=== PATIENT | female | born 1950 | race Caucasian/White ===

== ENCOUNTER 2024-06-11 13:20 | Inpatient (IN) | payer MEDICARE, OTHER ==
[~2024-06-11] VITALS: Ht 180.3 cm; Wt 105.1 kg
[2024-06-11 14:10] LABS: BASOPHILS # (AUTO) 0.07 K/uL (0.00-0.20); BASOPHILS % (AUTO) 0.7 % (0.0-5.0); EOSINOPHILS % (AUTO) 0.9 % (0.0-8.0); HEMATOCRIT 38.7 % (36-48); IMMATURE GRANULOCYTE ABSOLUTE 0.03 K/uL (0-1); LYMPHOCYTES % (AUTO) 27.5 % (21.0-51.0); MEAN CORPUSCULAR HEMOGLOBIN 31.1 pg (27.0-33.0); MEAN CORPUSCULAR HGB CONC 32.8 g/dL (32.0-36.0); MEAN CORPUSCULAR VOLUME 94.9 fL (79-99); MONOCYTES % (AUTO) 9.3 % (3.0-13.0); NEUTROPHILS # (AUTO) 6.6 K/uL (1.8-7.7); NEUTROPHILS % (AUTO) 61.3 % (40.0-77.0); PLATELET COUNT (AUTO) 240 K/uL (130-400); RED BLOOD CELL COUNT(AUTO) 4.08 MIL/uL (4.00-5.50); RED CELL DISTRIBUTION WIDTH 14.6 % (11.0-15.5); WHITE BLOOD COUNT (AUTO) 10.7 K/uL (4.8-10.8)
[2024-06-11 14:14] LABS: APPEARANCE,URINE CLEAR (CLEAR); BILIRUBIN,URINE NEGATIVE (NEGATIVE); COLOR,URINE YELLOW (YELLOW); GLUCOSE, URINE (UA) >=1000 mg/dL (NEGATIVE); KETONES,URINE NEGATIVE (NEGATIVE); LEUKOCYTE ESTERASE ,URINE NEGATIVE Leu/uL (NEGATIVE); NITRATE,URINE NEGATIVE (NEGATIVE); PROTEIN,URINE 600 mg/dL (NEGATIVE); UROBILINOGEN,URINE 0.2 mg/dL (0.2-1.0)
[2024-06-11 14:18] LABS: ADD UA MICROSCOPIC YES
[2024-06-11 14:20] LABS: BACTERIA,URINE RARE /HPF (None Seen); MUCUS,URINE RARE LPF (None Seen); SQUAMOUS EPITHELIAL CELL,UR FEW /HPF (0-2)
[2024-06-11 14:25] LABS: CREATININE 2.4 mg/dL (0.5-1.0); POTASSIUM 3.8 mmol/L (3.5-5.1)
[2024-06-11] MEDS ORDERED: GLUCAGON 1MG KIT 1 MG ML IM PRN ×2 (14:30→15:00)
[2024-06-11] MEDS ORDERED: PoTASSium chloRIDE 10MEQ SR 10 MEQ/TAB TAB.SR.24H PO PRN (14:30)
[2024-06-11] MEDS ORDERED: DEXTROSE 50%-WATER 50 ML DISP.SYRIN IV PRN ×2 (14:30→15:00)
[2024-06-11] MEDS ORDERED: PoTASSium chl 10% ELIXIR 20MEQ 20 MEQ/15 ML UDCUP PO PRN ×2 (14:30→15:00)
[2024-06-11] MEDS ORDERED: PoTASSium chloRIDE 10MEQ/100ML 100 ML IV PRN ×2 (14:30→15:00)
[2024-06-11] MEDS ORDERED: MAGNESIUM 2GM PREMIX 50ML 50 ML IV PRN ×2 (14:30→15:00)
[2024-06-11] MEDS ORDERED: PoTASSium chloRIDE 20MEQ ER 20 MEQ ERTAB PO PRN (15:00)
[2024-06-11] MEDS: MEROPENEM 2 GM in 0.9%NACL 100ML 100 ML IV SCH (16:09)
[2024-06-11] MEDS: INSULIN humuLIN R 100 UNIT/ML 3ML SQ SCH (16:11)
[2024-06-11] MEDS ORDERED: MEROPENEM 1 GM in 0.9%NACL 100ML 100 ML IV SCH (17:00)
[2024-06-11] MEDS ORDERED: COMPOUND IV MISC 1 EACH IVSOLN MISC PRN (19:00)
[2024-06-11] MEDS ORDERED: FOLI0.8T53 PO (19:18)
[2024-06-11] MEDS ORDERED: [UNRECOGNIZED DRUG - CODE] PO (19:18)
[2024-06-11] MEDS ORDERED: CHLO25TA3 PO (19:18)
[2024-06-11] MEDS ORDERED: HYDR50TA37 PO (19:18)
[2024-06-11] MEDS ORDERED: SODI650T PO (19:18)
[2024-06-11] MEDS ORDERED: EZET10TA48 PO (19:18)
[2024-06-11] MEDS ORDERED: LEVO200C2 PO (19:18)
[2024-06-11] MEDS ORDERED: MELA3CAP2 PO (19:18)
[2024-06-11] MEDS ORDERED: AMLO-258 PO (19:18)
[2024-06-11] MEDS ORDERED: SERT-438 PO (19:18)
[2024-06-11] MEDS ORDERED: OLME40TA18 PO (19:18)
[2024-06-11 21:25] VITALS: BP 191/87; PULSE 81; RESP 22; TEMP 97.9
[2024-06-11 21:41] VITALS: BP 189/79; PULSE 80
[2024-06-11 22:25] VITALS: BP 178/86; PULSE 68; RESP 21; TEMP 98.1
[2024-06-11 22:26] VITALS: O2SAT 95
[2024-06-11] MEDS: hydrALAZine 20MG/ML VIAL IV ONE (22:31)
[2024-06-12] VITALS (8 sets, daily range): BP systolic 108–181; BP diastolic 69–74; PULSE 78–87; RESP 16–20; TEMP 97.6–98.3; O2SAT 95–96
[2024-06-12] MEDS: MEROPENEM 500 MG/100ML CRCL 10-25 IV SCH (05:29)
[2024-06-12] MEDS: levoTHYROxine 100 MCG TABLET PO SCH (06:51)
[2024-06-12] MEDS: amLODIPine 5 MG TAB PO SCH (08:33)
[2024-06-12] MEDS: LoSARTan 100 MG TABLET PO SCH (08:33)
[2024-06-12] MEDS: SODIUM BICARBONATE 650 MG TAB PO SCH (08:33)
[2024-06-12] MEDS: Vitamin B Complex/Vit C/Folic Acid PO SCH (08:33)
[2024-06-12] MEDS: EZETIMIBE 10 MG TAB PO SCH (08:33)
[2024-06-12] MEDS: hydrALAZine 25MG TABLET PO SCH (08:44)
[2024-06-12] MEDS: ASPIRIN PO SCH (08:51)
[2024-06-12] MEDS: CALCIUM CARBONATE PO SCH (08:51)
[2024-06-12] MEDS ORDERED: FOLIC ACID PO SCH (09:00)
[2024-06-12] MEDS ORDERED: [UNRECOGNIZED DRUG - OTHER] PO SCH (09:00)
[2024-06-12] MEDS ORDERED: NON-FORMULARY MEDICATION 1 EACH (Hydralazine HCl 50 MG) PO SCH (09:00)
[2024-06-12] MEDS ORDERED: VIT B COMPLEX AND C PO SCH (09:00)
[2024-06-12] MEDS ORDERED: NON-FORMULARY MEDICATION 1 EACH (Olmesartan Medoxomil 40 MG) PO SCH (09:00)
[2024-06-12] MEDS ORDERED: NON-FORMULARY MEDICATION 1 EACH (Levothyroxine Sodium (Levothyroxine) 200 MCG) PO SCH (09:00)
[2024-06-12] MEDS ORDERED: NON-FORMULARY MEDICATION 1 EACH (Amlodipine Besylate 10 MG) PO SCH (09:00)
[2024-06-12] MEDS: ketOROlac 15MG/ML VIAL (15MG/ML) ONE (12:22)
[2024-06-12 15:44] LABS: INR 0.95 (0.85-1.15); PROTHROMBIN TIME 10.3 SEC (9.6-11.6)
[2024-06-12] MEDS ORDERED: NON-FORMULARY MEDICATION 1 EACH (Sertraline HCl 25 MG) PO SCH (21:00)
[2024-06-12] MEDS: SERTraline HCL 50 MG TABLET PO SCH (21:17)
[2024-06-13 04:51] VITALS: BP 177/86; PULSE 76; RESP 18; TEMP 98.3
[2024-06-13 05:31] LABS: BASOPHILS # (AUTO) 0.06 K/uL (0.00-0.20); BASOPHILS % (AUTO) 0.7 % (0.0-5.0); EOSINOPHILS # (AUTO) 0.09 K/uL (0.00-0.70); HEMATOCRIT 35.4 % (36-48); IMMATURE GRANULOCYTE ABSOLUTE 0.06 K/uL (0-1); LYMPHOCYTES # (AUTO) 2.9 K/uL (1.0-4.8); MEAN CORPUSCULAR HEMOGLOBIN 31.3 pg (27.0-33.0); MEAN CORPUSCULAR HGB CONC 33.1 g/dL (32.0-36.0); MEAN CORPUSCULAR VOLUME 94.7 fL (79-99); MONOCYTES # (AUTO) 0.9 K/uL (0.1-1.0); MONOCYTES % (AUTO) 9.7 % (3.0-13.0); NEUTROPHILS % (AUTO) 55.9 % (40.0-77.0); PLATELET COUNT (AUTO) 200 K/uL (130-400); RED BLOOD CELL COUNT(AUTO) 3.74 MIL/uL (4.00-5.50); RED CELL DISTRIBUTION WIDTH 14.6 % (11.0-15.5)
[2024-06-13 06:03] LABS: ALBUMIN 2.7 g/dL (3.5-5.0); BILIRUBIN,TOTAL 0.4 mg/dL (0.2-1.0); CREATININE 1.9 mg/dL (0.5-1.0); MAGNESIUM 1.9 mg/dL (1.80-2.40); POTASSIUM 3.8 mmol/L (3.5-5.1); TOTAL PROTEIN, SERUM 6.7 g/dL (6.0-8.3)
[2024-06-13 08:00] VITALS: BP 182/70; PULSE 81; RESP 18; TEMP 98.8; O2SAT 96
[2024-06-13] MEDS: INSULIN LISpro 100 UNIT/ML 3ML SQ SCH (11:30)
[2024-06-13 12:00] VITALS: BP 152/81; PULSE 75; RESP 18; TEMP 98.8
[2024-06-13] MEDS ORDERED: PoTASSium chloRIDE 10MEQ SR 10 MEQ/TAB TAB.SR.24H PO PRN (15:00)
[2024-06-13 15:50] VITALS: BP 171/88; PULSE 84; RESP 18; TEMP 98.1
[2024-06-13 16:45] VITALS: BP 165/83; PULSE 79
== END 2024-06-13 20:40 | disposition home or self-care (01) | DRG 690 ==
LOC: EDH 13:20 → EDHIP 14:13 → 4AH 21:03
PROVIDERS: ADMIT Hospitalist; ATTEND Hospitalist
DX: N39.0 Urinary tract infection, site not specified (principal); I48.92 Unspecified atrial flutter; Z16.24 Resistance to multiple antibiotics; N18.30 Chronic kidney disease, stage 3 unspecified; I16.0 Hypertensive urgency; B96.1 Klebsiella pneumoniae [K. pneumoniae] as the cause of diseases classified elsewhere; E11.22 Type 2 diabetes mellitus with diabetic chronic kidney disease; E66.01 Morbid (severe) obesity due to excess calories; E78.5 Hyperlipidemia, unspecified; I12.9 Hypertensive chronic kidney disease with stage 1 through stage 4 chronic kidney disease, or unspecified chronic kidney disease; Z83.3 Family history of diabetes mellitus; Z86.16 Personal history of COVID-19; Z87.440 Personal history of urinary (tract) infections; Z79.01 Long term (current) use of anticoagulants; Z88.0 Allergy status to penicillin; Z88.1 Allergy status to other antibiotic agents; Z90.49 Acquired absence of other specified parts of digestive tract; Z91.041 Radiographic dye allergy status; Z68.32 Body mass index [BMI] 32.0-32.9, adult
CPT/HCPCS: 36415; 71045; 80048; 80053; 81001; 82948; 83036; 83735; 83880; 84484; 85025; 85610; 87086; 87186; 93005; 93306; G0378; J0360; J1815; J1885; J2185

== ENCOUNTER 2024-06-20 12:54 | Emergency (ER) | payer MEDICARE, OTHER ==
[~2024-06-20] VITALS: Ht 165.1 cm; Wt 104.3 kg
[~2024-06-20 12:54] MED LIST: AMLO-258 PO; CHLO25TA3 PO; EZET10TA48 PO; FOLI0.8T53 PO; HYDR50TA37 PO; LEVO200C2 PO; MELA3CAP2 PO; OLME40TA18 PO; SERT-438 PO; SODI650T PO; [UNRECOGNIZED DRUG - CODE] PO
[2024-06-20 14:27] LABS: BASOPHILS % (AUTO) 0.9 % (0.0-5.0); EOSINOPHILS # (AUTO) 0.35 K/uL (0.00-0.70); EOSINOPHILS % (AUTO) 3.2 % (0.0-8.0); HEMATOCRIT 36.8 % (36-48); IMMATURE GRANULOCYTE ABSOLUTE 0.21 K/uL (0-1); LYMPHOCYTES # (AUTO) 3.5 K/uL (1.0-4.8); LYMPHOCYTES % (AUTO) 32.3 % (21.0-51.0); MEAN CORPUSCULAR HEMOGLOBIN 31.3 pg (27.0-33.0); MEAN CORPUSCULAR HGB CONC 32.9 g/dL (32.0-36.0); MEAN CORPUSCULAR VOLUME 95.1 fL (79-99); MONOCYTES % (AUTO) 9.2 % (3.0-13.0); NEUTROPHILS # (AUTO) 5.7 K/uL (1.8-7.7); NEUTROPHILS % (AUTO) 52.5 % (40.0-77.0); PLATELET COUNT (AUTO) 285 K/uL (130-400); RED BLOOD CELL COUNT(AUTO) 3.87 MIL/uL (4.00-5.50); RED CELL DISTRIBUTION WIDTH 14.6 % (11.0-15.5); WHITE BLOOD COUNT (AUTO) 10.9 K/uL (4.8-10.8)
[2024-06-20 14:38] LABS: CREATININE 1.9 mg/dL (0.5-1.0); POTASSIUM 3.8 mmol/L (3.5-5.1)
[2024-06-20 14:39] LABS: INR 0.97 (0.85-1.15); PROTHROMBIN TIME 10.5 SEC (9.6-11.6)
[2024-06-20 14:41] LABS: PARTIAL THROMBOPLASTIN TIME 27.8 SEC (26.3-35.5)
[2024-06-20 15:22] VITALS: BP 138/74; PULSE 80; RESP 16; TEMP 98.2; O2SAT 98
== END 2024-06-20 15:22 | disposition home or self-care (01) ==
LOC: EDH 12:54
DX: I48.92 Unspecified atrial flutter (principal); N13.6 Pyonephrosis; B96.20 Unspecified Escherichia coli [E. coli] as the cause of diseases classified elsewhere; E11.9 Type 2 diabetes mellitus without complications; I10 Essential (primary) hypertension; Z79.82 Long term (current) use of aspirin; Z79.899 Other long term (current) drug therapy; Z88.0 Allergy status to penicillin; Z88.8 Allergy status to other drugs, medicaments and biological substances; Z90.49 Acquired absence of other specified parts of digestive tract; Z91.041 Radiographic dye allergy status; Z98.51 Tubal ligation status; Z98.890 Other specified postprocedural states
CPT/HCPCS: 36415; 80048; 85025; 85610; 85730

== ENCOUNTER → 2024-10-19 | Outpatient (CLI) | payer MEDICARE, OTHER ==
[~2024-10-19] MED LIST changes: +REGADENOSON 0.4 MG/5 ML PF SYG IVP ONE
--- NOTE | 2024-10-19 20:30 | HMCSR ---
APPROVED REPORT TEST INDICATIONS Dyspnea The imaging protocol used to acquire images was Rest Tc-99m/stress Tc-99m 1 day Consent: The procedure was explained and understood by the patient. Informerd consent was witnessed Edgar Adorno Jr (N)(ARRT) First, low dose rest was performed then high dose stress. RESTING DATA: The resting ekg shows: NSR Rest SPECT myocardial perfusion imaging was performed in supine position minutes following the intra venous injection of 11.6 mCi of Tc-99 Sestamibi. Time of rest injection: 1155 Date: 10/19/2024 PHARMACOLOGIC STRESS: Pharmacologic stress test was performed by injecting regadenoson 0.4 mg IV push followed by the intra venous injection of 27 mCi of Tc-99 Sestamibi. Time of stress injection: 1330 Date: 10/19/2024 Heart Rate at time of stress injection: 59 bpm. The images were gated to evaluate regional wall motion and calculate left ventricular ejection fracti on. STRESS DETAILS Reason for Termination: Infusion complete Stress Symptoms: Chest Discomfort, Lt Arm Pain Max HR Achieved: 71 bpm % of APMHR Achieved: 58 Max Blood Pressure: 177/56 mmHg Stress ECG: NSR Study quality was good. Lung uptake was Normal. LV PERFUSION Small mixed anteroseptal and anteroapical wall defect with small reversibility IMPRESSION Mildly abnormal pharmacologic nuclear stress test. Conclusion Mild LAD distribution ischemia Normal LV EF 57 % Mildly abnormal pharmacologic nuclear stress test.
== END | disposition home or self-care (01) ==
LOC: RAH 11:24
PROVIDERS: ATTEND Internal Medicine Cardiovascular Disease
DX: I99.8 Other disorder of circulatory system (principal); R06.02 Shortness of breath; R06.00 Dyspnea, unspecified
CPT/HCPCS: 78452; 93017; J2785; A9500 ×2